=== PATIENT | female | born 1995 ===

== ENCOUNTER 2021-10-10 18:04 | Inpatient (IN) | payer SELFPAY ==
[2021-10-10] MEDS ORDERED: OXYTOCIN 10 UNIT/1 ML INJ IM PRN (19:33)
[2021-10-10] MEDS ORDERED: miSOPROStol 200 MCG TAB PR PRN (19:33)
[2021-10-10] MEDS ORDERED: NALOXONE 0.4 MG/1 ML INJ IV PRN (19:33)
[2021-10-10] MEDS ORDERED: LOPERAMIDE 2 MG CAP PO PRN (19:33)
[2021-10-10] MEDS ORDERED: ePHEDrine SULFATE 50 MG/1 ML INJ IV PRN (19:33)
[2021-10-10] MEDS ORDERED: METHYLERGONOVINE MALEATE 0.2 MG/ML VIAL IM PRN (19:33)
[2021-10-10] MEDS ORDERED: MINERAL OIL 30 ML ORAL LIQD PO PRN (19:33)
[2021-10-10] MEDS ORDERED: CARBOPROST TROMETHAMINE 250 MCG/1 ML INJ IM PRN (19:33)
[2021-10-10] MEDS ORDERED: TERBUTALINE 1 MG/1 ML INJ SUB-Q PRN (19:33)
[2021-10-10] MEDS ORDERED: LIDOCAINE (2%) 20 MG/1 ML VIAL 20 ML MDV INFILTRATI ONE (19:33)
[2021-10-10] MEDS ORDERED: ONDANSETRON 4 MG/2 ML INJ IV PRN (19:33)
[2021-10-10] MEDS ORDERED: BUTORPHANOL 2 MG/1 ML INJ IV PRN (19:33)
--- NOTE | 2021-10-10 19:40 | History and Physical Report ---
History of Present Illness Date of examination: 10/10/21 Date of admission: 10/10/2021 Chief complaint: Intense Labor Pains History of present illness: Care at [facility] , course complicated by Varicose Veins (ASA 81mg); a abnormal 1hour GTT (followed by a normal 3 hour GTT); and carpal tunnel. Past History Past Medical History: no pertinent history Past Surgical History: no surgical history Family/Genetic History: none Social history: no significant social history, - Obstetrical History Expected Date of Delivery: 10/07/21 Actual Gestation: 40 Week(s) 3 Day(s) : 3 Para: 2 Hx # Term Pregnancies: 2 Number of Living Children: 2 #1 Infant Gender: Male year: 2,011 Birthweight: 2.722 kg Method of Delivery: Vaginal Gestational age at delivery: 40 #2 Gender: Female year: 2,[birth year] Birthweight: 2.722 kg Method of Delivery: Vaginal Complications: none Medications and Allergies Allergies Allergy/AdvReac Type Severity Reaction Status Date / Time No Known Allergies Allergy Unverified 11/15/14 19:43 Home Medications Medication Instructions Recorded Confirmed Last Taken Type No Known Home Medications [No 11/17/14 11/17/14 Unknown History Reported Home Medications] Active Meds: Active Medications Carboprost Tromethamine (Carboprost Tromethamine 250 Mcg/1 Ml Inj) 250 mcg IM ONCE PRN PRN Reason: Uterine Bleeding Ephedrine Sulfate (Ephedrine Sulfate 50 Mg/1 Ml Inj) 10 mg IV Q2M PRN PRN Reason: Hypotension Oxytocin/Sodium Chloride (Pitocin/Ns 30 Unit/500ml) 30 units in 500 mls @ 2 mls/hr IV TITR KAZ; Protocol Lactated Ringer's (Lactated Ringers) 1,000 mls @ 125 mls/hr IV DIRECT KAZ Oxytocin/Sodium Chloride (Pitocin/Ns 30 Unit/500ml) 30 units in 500 mls @ 40 mls/hr IV TITR KAZ; Protocol Loperamide HCl (Loperamide 2 Mg Cap) 2 mg PO ONCE PRN PRN Reason: give with Hemabate Methylergonovine Maleate (Methylergonovine Maleate 0.2 Mg/Ml Vial) 0.2 mg IM ONCE PRN PRN Reason: Uterine Bleeding Mineral Oil (Mineral Oil 30 Ml Oral Liqd) 30 ml PO QHS PRN PRN Reason: Constipation Oxytocin (Oxytocin 10 Unit/1 Ml Inj) 10 unit IM ONCE PRN PRN Reason: Uterine Bleeding Terbutaline Sulfate (Terbutaline 1 Mg/1 Ml Inj) 0.25 mg SUB-Q ONCE PRN PRN Reason: Hyperstimulation/Hypertonicity Review of Systems All systems: negative - Physical Exam Breasts: Positive: normal Cardiovascular: Regular rate Lungs: Positive: Clear to auscultation, Normal air movement Abdomen: Positive: normal appearance, soft, normal bowel sounds Genitourinary (Female): Positive: normal external genitalia, normal perenium Vagina: Positive: normal moisture Uterus: Positive: enlarged Anus/Rectum: Positive: normal perianal skin - Obstetrical FHR: category 1 Uterine Contraction Monitor Mode: External Cervical Dilatation: 7 Cervical Effacement Percentage: 80 station: -2 Uterine Contraction Pattern: Regular Uterine Tone Measurement Phase: Resting Uterine Contraction Intensity: Moderate Results All other labs normal. Assessment and Plan A: IUP @ 40 3/7 Weeks Category I Tracing Active Labor GBS Negative P: Admit to L&D Per Routine Orders Pitocin Augmentation
[2021-10-10] MEDS ORDERED: LACTATED RINGERS 1,000 ML IV SCH (19:45)
[2021-10-10] MEDS ORDERED: OXYTOCIN DRIP 30 UNITS/500 ML BAG IV SCH ×2 (20:00)
--- NOTE | 2021-10-10 20:22 | Progress Note ---
Assessment and Plan A: IUP @ 40 3/7 Weeks Category I Tracing Active Labor GBS Negative P: AROM Start Pitocin Augmentation Subjective - Subjective Date of service: 10/10/21 Interval history: Care at [facility] , course complicated by Varicose Veins (ASA 81mg); a abnormal 1hour GTT (followed by a normal 3 hour GTT); and carpal tunnel. Patient reports: movement normal, contractions Objective - Vital Signs Vital Signs: Vital Signs - 12hr 10/10/21 10/10/21 10/10/21 19:36 19:45 19:50 Temperature 98.2 F Pulse Rate 88 93 H Respiratory 14 Rate O2 Sat by Pulse 100 97 97 Oximetry 10/10/21 10/10/21 10/10/21 19:55 20:00 20:05 Temperature Pulse Rate 82 88 84 Respiratory Rate O2 Sat by Pulse 97 98 98 Oximetry 10/10/21 10/10/21 20:10 20:15 Temperature Pulse Rate 84 81 Respiratory Rate O2 Sat by Pulse 98 99 Oximetry - Exam Breasts: normal Cardiovascular: Regular rate Lungs: Normal air movement Abdomen: Present: normal appearance, soft Uterus: Present: normal, firm, fundal height above umbilicus FHR: category 1 Uterine Contraction Monitor Mode: External Cervical Dilatation: 7 (Scant amount of clear fluid upon AROM @2018) Cervical Effacement Percentage: 90 station: -2 Uterine Contraction Pattern: Irregular Uterine Tone Measurement Phase: Resting Uterine Contraction Intensity: Moderate Extremities: edema (+1 bilateral pedal edema)
[2021-10-10 20:47] LABS: Hematocrit 38.3 % (30.3-42.9); Hemoglobin 12.8 gm/dl (10.1-14.3); Mean Corpuscular HGB Conc 34 % (30-34); Mean Corpuscular Volume 85 fl (79-97); Platelet Count 202 K/mm3 (140-440); Red Blood Count 4.52 M/mm3 (3.65-5.03)
--- NOTE | 2021-10-10 21:45 | Procedure Note ---
OB Delivery Note - Delivery Date of Delivery: 10/10/21 (2124) Surgeon: BRANDYN BATISTA Estimated blood loss: other (150) - Vaginal Delivery presentation: vertex Delivery position: OA Intrapartum events: none Delivery induction: none Delivery augmentation: rupture of membranes, pitocin Delivery monitor: external FHT, external uterine Route of delivery: Delivery placenta: spontaneous Delivery cord: 3 umbilical vessels Episiotomy: none Delivery laceration: none Anesthesia: none Delivery comments: of a live 7'10 male over a intact perineum under IV Pain Control with Apgars of 8 and 9 at 2124 on 10/10/2021. Infant directly to maternal abd/check; skin to skin contact. Spontaneous delivery of Placenta complete and intact with Guillen side presenting at 2130. Fundus is firm and midline located 4 below the U; Lochia is scant. Delayed cord clamping and cutting; Cord cut by the Father of the Baby. Cord blood collected; Placenta discarded. - Infant A at 1 minute: 8 at 5 minutes: 9 Gender: Male (7'10)
[2021-10-11] MEDS ORDERED: HYDROcodone/ACETAMINOPHEN 5-325 MG TAB PO PRN (10:00)
[2021-10-11] MEDS ORDERED: PROMETHAZINE 25 MG TAB PO PRN (10:00)
[2021-10-11] MEDS ORDERED: LANOLIN/ZINC/DIMETHICONE (LANSINOH) 7 GM TP PRN (10:00)
[2021-10-11] MEDS ORDERED: diphenhydrAMINE 25 MG CAP PO PRN (10:00)
[2021-10-11] MEDS: IBUPROFEN 800 MG TAB PO SCH ×2 (10:13→17:12)
[2021-10-11] MEDS: PRENATAL VIT27-FE FUMARATE-FOLIC ACID VIT TAB PO SCH (10:13)
[2021-10-11 11:42] LABS: Hematocrit 39.5 % (30.3-42.9)
--- NOTE | 2021-10-11 17:15 | Discharge Summary ---
Providers - Providers Date of Admission: 10/10/21 22:24 Date of discharge: 10/12/21 Attending physician: Vern Fuchs Primary care physician: DAY LUZ Hospitalization Reason for admission: active labor Delivery: Episiotomy: none Laceration: none Other procedures: none complications: none Discharge diagnosis: IUP at term delivered [place] baby: male Condition at discharge: Good Disposition: 01 HOME / SELF CARE / HOMELESS Plan - Discharge Medications Prescriptions: Ibuprofen [Motrin 800 MG tab] 800 mg PO Q8HR #30 tablet - Provider Discharge Summary Activity: no sex for 6 weeks, no heavy lifting 4 weeks, no strenuous exercise Diet: routine Instructions: routine Additional instructions: [] Smoking cessation referral if applicable(refer to patient education folder for contact #) [] Refer to [facility]'s [facility] Booklet Call your doctor immediately for: * Fever > 100.5 * Heavy vaginal bleeding ( >1 pad per hour) * Severe persistent headache * Shortness of breath * Reddened, hot, painful area to leg or breast * Drainage or odor from incision. * Keep incision clean and dry at all times and follow doctor's instructions regarding bathing/showering - Follow up plan Follow up: DAY LUZ MD [Primary Care Provider] - 6 Weeks
[2021-10-11] MEDS ORDERED: MEASLES, MUMPS & RUBELLA 12,500 UNIT/0.5 ML VACCINE SUB-Q ONE (21:38)
[2021-10-12] MEDS: IBUPROFEN 800 MG TAB PO SCH ×3 (00:21→12:19)
[2021-10-12] MEDS ORDERED: TETANUS,DIPH,PERTUSS(ACELL) VACCINE 0.5 ML SYRINGE IM ONE (06:11)
[2021-10-12] MEDS: PRENATAL VIT27-FE FUMARATE-FOLIC ACID VIT TAB PO SCH (10:08)
[2021-10-12 12:34] VITALS: BP 108/59
== END 2021-10-12 13:20 | disposition home or self-care (01) | DRG 807 ==
LOC: TRG 18:04 → APU 18:05 → LD 19:44 → TRG 22:23 → LD 22:24 → OB 10-11 08:51
PROVIDERS: ADMIT Obstetrics & Gynecology; ATTEND Obstetrics & Gynecology
PROC: 10E0XZZ Delivery of Products of Conception, External Approach (ICD-10-PCS; principal; 2021-10-10)
DX: O62.3 Precipitate labor (principal); Z37.0 Single live birth; Z3A.40 40 weeks gestation of pregnancy; Z20.822 Contact with and (suspected) exposure to COVID-19
CPT/HCPCS: 36415; 85014; 85018; 85027; 86850; 86900; 86901; 90471; 90715; G0378; J0595; J2590; U0003